=== PATIENT | male | born 1995 | race Caucasian/White ===

== ENCOUNTER 2018-05-22 01:33 | Emergency (ER) | payer SELFPAY ==
[2018-05-22] MEDS: ONDANSETRON 4 MG INJ IV (02:02)
[2018-05-22] MEDS: SOD CHLORIDE 0.9% 1,000 ML IV (02:02)
== END 2018-05-22 05:16 | disposition home or self-care (01) ==
LOC: E/R 01:33
DX: F10.920 Alcohol use, unspecified with intoxication, uncomplicated (principal); R11.10 Vomiting, unspecified; R40.2122 Coma scale, eyes open, to pain, at arrival to emergency department; R40.2222 Coma scale, best verbal response, incomprehensible words, at arrival to emergency department; R40.2352 Coma scale, best motor response, localizes pain, at arrival to emergency department
CPT/HCPCS: 96374; 99284-25